=== PATIENT | female | born 1990 | race Caucasian/White ===

== ENCOUNTER → 2019-12-27 | Outpatient (CLI) | payer MEDICAID ==
[~2019-12-27] MED LIST: ALBU6.7H9 INH; BUSP10TA11 PO; CHOL500050; PROP10TA10 PO; QUET-1 PO; SERT50TA PO; [UNRECOGNIZED DRUG - OTHER]
== END | disposition home or self-care (01) ==
LOC: CARD DIAG 14:05
DX: Z79.899 Other long term (current) drug therapy (principal)
CPT/HCPCS: 93005

== ENCOUNTER 2025-03-17 14:26 | Emergency (ER) | payer MEDICAID ==
[~2025-03-17] VITALS: Ht 157.5 cm; Wt 200.8 kg
[~2025-03-17 14:26] MED LIST changes: +ALBU6.7H14 INH; -ALBU6.7H9 INH
[2025-03-17 14:37] VITALS: BP 186/91; PULSE 128; RESP 18; TEMP 97.8; O2SAT 100
[2025-03-17] MEDS ORDERED: VENL225T3 PO (18:17)
--- NOTE | 2025-03-17 18:20 | Physician Documentation ---
HPI ~ General Chief Complaint: Medication Request Stated Complaint: MEDICATION WITHDRAWAL Time Seen by MD: 14:40 Primary Medical Doctor: Addison Stevenson In History of Present Illness HPI Comments Patient is seen today with complaints of having missed her venlafaxine dose starting almost a week ago. Patient states something happened with her normal [facility] and has not been able to get in with her primary care in a timely manner. Patient states she just needs a refill of venlafaxine HCL ER 225 mg one tab once a day by mouth. Patient has no other concern or complaint at this time. Medication Reconciliation Allergies: Coded Allergies: erythromycin base (Verified Allergy, Intermediate, 03/17/25) tetracycline (Unverified Allergy, Unknown, 03/17/25) Scheduled Albuterol Sulfate (Proventil Hfa), 2 PUFFS INH Q6H Buspirone Hcl* (Buspar*), 1.5 TAB PO TID, (Reported) Cholecalciferol (Vitamin D3) (Vitamin D), 5,000 UNITS DAILY, (Reported) Propranolol Hcl* (Inderal*), 1 TAB PO TID, (Reported) Quetiapine Fumarate* (Seroquel*), 1 TAB PO HS, (Reported) Sertraline Hcl* (Zoloft*), 2 TAB PO DAILY, (Reported) [Violar], 6 MG DAILY, (Reported) Past Medical History Past Medical History: Asthma, *GI/HEPATOBILIARY*, Anxiety, Bipolar, Depression Past Surgical History: no surgical history Alcohol Use: None Drug Use: none Lives with: Family Lives In: Home Review of Systems Constitutional: Denies: chills, fever, weakness Eyes: Denies: pain, blurred vision ENT: Denies: ear pain, nose pain, throat pain, mouth pain Respiratory: Denies: cough, shortness of breath Cardiovascular: Denies: chest pain, palpitations Gastrointestinal: Denies: abdominal pain, nausea, vomiting Genitourinary: Denies: burning, dysuria Female Genitalia: Denies: vaginal discharge, pelvic pain Neurological: Denies: headache, dizziness Musculoskeletal: Denies: pain, swelling Integumentary: Denies: rash, lesions Allergic/Immunologic: Denies: hives, itching Hematologic/Lymphatic: Denies: no symptoms reported Psychiatric: Denies: depression, anxiety Physical Exam Physical Exam Vital Signs: Temperature: 97.8, Source: Temporal, Heart Rate: 128, Respiratory Rate: 18, BP: 186/91, Pulse Oximetry: 100, Weight: 200.850 Physical Exam General: Awake and Alert, no acute distress. HEENT: Conjunctiva pink, Sclera clear, Mucus Membranes moist. Neck: Supple without masses and tenderness. Resp: Unlabored. Lungs clear to auscultation bilaterally. Heart: Regular Rate and rhythm, normal S1 and S2 without murmur, rub or gallop. Abdomen: Soft and non tender no organomegaly Extremities: No cyanosis,clubbing or edema. Skin: Warm and Dry. Progress Results/Orders Results/Orders Vital Signs 03/17/25 14:37 Temp 97.8 Pulse 128 Resp 18 B/P (MAP) 186/91 Pulse Ox 100 Medical Decision Making Findings Patient is seen today with complaints of having missed her venlafaxine dose starting almost a week ago. Patient states something happened with her normal [facility] and has not been able to get in with her primary care in a timely manner. Patient states she just needs a refill of venlafaxine HCL ER 225 mg one tab once a day by mouth. Patient has no other concern or complaint at this time. Patient was given refill of venlafaxine HCL ER to 25 mg one tab once a day by mouth for 15 days 15. Tablets. Patient will follow up with primary care as soon as possible for further refills. Patient will return to ED with any worsening, concerning or changing symptoms. Departure Disposition: 01 HOME / SELF CARE / HOMELESS Impression: Primary Impression: Depression Qualified Codes: F32.A - Depression, unspecified Additional Impression: Medication refill Condition: Stable Discharge Instructions: Medicine Refill at the Emergency Department Additional Instructions: Patient was given refill of venlafaxine HCL ER to 25 mg one tab once a day by mouth for 15 days 15. Tablets. Patient will follow up with primary care as soon as possible for further refills. Patient will return to ED with any worsening, concerning or changing symptoms. Referrals: NO PRIMARY CARE PROVIDER (PCP) Prescriptions Venlafaxine HCl (Venlafaxine HCl ER) 225 Mg Tab.er.24 1 TAB PO DAILY for 15 Days, #15 TAB 0 Refills Prov: LIZ SALAZAR 03/17/25 Signature Scribe Signature: No scribe Attestation: No scribe LIZ SALAZAR [facility] Mar 17, 2025 18:20
== END 2025-03-17 19:45 | disposition home or self-care (01) ==
LOC: ER 14:27
DX: F31.9 Bipolar disorder, unspecified (principal); Z76.0 Encounter for issue of repeat prescription; J45.909 Unspecified asthma, uncomplicated; F41.9 Anxiety disorder, unspecified; Z88.1 Allergy status to other antibiotic agents; Z79.899 Other long term (current) drug therapy
CPT/HCPCS: 99281